=== PATIENT | female | born 1970 | race Caucasian/White ===

== ENCOUNTER → 2016-11-24 | Outpatient (CLI) | payer OTHER ==
[~2016-11-24] MED LIST: CATHETER FLUSH 10 ML SYR IV PRN; HYDR-229 PO; IOHEXOL 350 MG/ML 100 ML (OMNIPAQUE 350) VIAL IV ONE; NS 100 ML (IVPB) BAG IV ONE; OXYC-12 PO; OXYC-309 PO; PHEN37.555 PO
--- OUTSIDE RECORDS SUMMARY | 2016-11-24 10:25 | XMS REPORT ---
Author Author YAZMIN LOWE [facility] eClinical[employer] Address Unknown Phone Unavailable Care Team Providers Care Wreath Inspector Name Role Phone YAZMIN LOWE CP Unavailable Allergies, Adverse Reactions, Alerts Substance Reaction Event Type N.K.D.A. Info Not Available Non Drug Allergy Problems Problem Type Condition ICD-9 Code Onset Dates Condition Status Problem Obesity (BMI 30-39.9) 278.00 Active Problem Chronic pain 338.29 Active Problem Hypothyroid 244.9 Active Assessment Chronic pain 338.29 Active Assessment Hypothyroid 244.9 Active Assessment Obesity (BMI 30-39.9) 278.00 Active Medications Medication Code System Code Instructions Start Date End Date Status Dosage Levothyroxine Sodium [facility] [address]-57 150 MCG Orally Once a day 1 tablet Levothyroxine Sodium [facility] [address]-67 150 MCG Orally Once a day May 25, 2015 1 tablet Ibuprofen [facility] [address]-68 800 MG Orally Three times a day 1 tablet Tramadol HCl [facility] [address]-60 50 MG Orally every 4-6 hrs 1 tablet as needed Ultram [facility] [address]-94 50 MG Orally 3 times a day May 25, 2015 Aug 23, 2015 1 tablet as needed Ibuprofen [facility] [address]-18 800 MG Orally Three times a day May 25, 2015 Sep 22, 2015 1 tablet Phentermine HCl [facility] [address]-64 37.5 MG Orally Once a day May 25, 2015 Aug 23, 2015 as directed Procedures Procedure Coding System Code Date Office Visit, New Pt., Level 4 CPT-4 14863 May 25, 2015 Vital Signs Date/Time: May 25, 2015 Temperature 98.0 F Weight 272 lbs Height 5.2 in BMI 7,071.60 Index Blood Pressure Diastolic 72 mmHg Blood Pressure Systolic 122 mmHg Cardiac Monitoring Heart Rate 78 bpm Results No Known Results Summary Purpose eClinicalWorks Submission
[2016-11-24 10:41] LABS: MEAN PLATELET VOLUME 10.1 FL (7.4-10.4); RED BLOOD COUNT 4.35 10^6/uL (4.35-5.85); RED CELL DISTRIBUTION WIDTH 12.5 % (10.0-14.5); WHITE BLOOD COUNT 7.7 10^3/uL (4.3-11.0)
--- NOTE | 2016-11-24 12:14 | Diagnostic Imaging Report ---
PROCEDURE: CT abdomen and pelvis with and without contrast. TECHNIQUE: Precontrast acquisitions were acquired through the abdomen and pelvis. Multiple contiguous axial images were obtained through the abdomen and pelvis after the administration of intravenous contrast. INDICATION: Abdominal pain, bloody stools, fever, nausea and vomiting. COMPARISON: I have no previous for comparison. FINDINGS: There is edematous thickening of the palma of the colon from the cecum to the rectum. This is in a nonvascular distribution and is compatible with nonspecific colitis, infectious etiology is not excluded. There is mild pericolonic edema but no evidence for a transmural perforation, obstruction or abscess. There is no free air or pneumatosis. Celiac, superior, mesenteric and inferior mesenteric arteries as well as those vessels primary branches were all patent. The unobstructed small bowel appeared normal. The gallbladder is absent. The liver, bile ducts, spleen, adrenals and pancreas are all unremarkable. There is no hydronephrosis. The adrenals are negative. The kidneys appeared normal. IMPRESSION: Edematous thickening of the palma of the colon diffusely compatible with nonspecific colitis. No abscess, obstruction or perforation. Negative small bowel. The remaining abdominal pelvic, solid and hollow viscera appeared normal. Dictated by: Dictated on workstation # [id number]
== END ==
LOC: RAD 10:21
PROVIDERS: ATTEND Internal Medicine
DX: K52.9 Noninfective gastroenteritis and colitis, unspecified (principal)
CPT/HCPCS: 36415; 74178; 85027